=== PATIENT | female | born 1955 | race Caucasian/White ===

== ENCOUNTER 2017-06-16 08:19 | Emergency (ER) | payer MEDICAID ==
[~2017-06-16] VITALS: Ht 162.6 cm; Wt 63.5 kg
[2017-06-16] MEDS ORDERED: ASPIR 8181 MG ORAL (08:39)
[2017-06-16] MEDS ORDERED: LISINOPRIL2.5 MG ORAL (08:39)
[2017-06-16] MEDS ORDERED: OYSTER SHELL C500 MG PO (08:41)
[2017-06-16] MEDS ORDERED: LORAZEPAM0.5 MG ORAL (08:42)
[2017-06-16] MEDS ORDERED: IBUPROFEN600 MG ORAL ×2 (08:42→15:11)
[2017-06-16] MEDS ORDERED: QUETIAPINE FUMA25 MG ORAL (08:42)
[2017-06-16] MEDS ORDERED: ATORVASTATIN CA20 MG ORAL (08:43)
[2017-06-16] MEDS ORDERED: MELOXICAM15 MG PO (08:43)
[2017-06-16 08:45] VITALS: BP 131/82
[2017-06-16 09:28] LABS: BASOPHILS % (AUTO) 0.9 % (0.0-2.0); EOSINOPHILS % (AUTO) 2.2 % (0.0-3.0); HEMATOCRIT 46.2 % (37.0-47.0); HEMOGLOBIN 15.3 G/DL (12.0-16.0); LYMPHOCYTES % (AUTO) 29.9 % (20.0-45.0); MEAN CORPUSCULAR VOLUME 92 FL (80-99); MONOCYTES % (AUTO) 6.8 % (1.0-10.0); NEUTROPHILS % (AUTO) 60.2 % (45.0-75.0); PLATELET COUNT 297 K/UL (150-450); RED BLOOD COUNT 5.01 M/UL (4.20-5.40); RED CELL DISTRIBUTION WIDTH 11.3 % (11.6-14.8); WHITE BLOOD COUNT 5.2 K/UL (4.8-10.8)
[2017-06-16 09:37] LABS: ANION GAP 8 mmol/L (5-15); BLOOD UREA NITROGEN 18 mg/dL (7-18); CALCIUM 9.8 MG/DL (8.5-10.1); CARBON DIOXIDE 29 MMOL/L (21-32); CHLORIDE 105 MMOL/L (98-107); CREATININE 0.6 MG/DL (0.55-1.30); SODIUM 142 MMOL/L (136-145)
[2017-06-16 09:57] LABS: ALANINE AMINOTRANSFERASE 54 U/L (12-78); ALBUMIN 4.3 G/DL (3.4-5.0); ALBUMIN/GLOBULIN RATIO 1.3 (1.0-2.7); ALKALINE PHOSPHATASE 100 U/L (46-116); ASPARTATE AMINO TRANSFERASE 35 U/L (15-37); BILIRUBIN,TOTAL 0.7 MG/DL (0.2-1.0); CKMB 0.7 NG/ML (0.0-3.6); CREATINE KINASE 53 U/L (26-308)
--- NOTE | 2017-06-16 10:28 | Diagnostic Imaging Report ---
Indication: Dyspnea Comparison: None A single view chest radiograph was obtained. Findings: Cardiomediastinal appearance is within normal limits for age. Pulmonary vascularity is appropriate. The diaphragmatic contour is smooth and costophrenic angles are sharp. No pleural effusions are identified. The bones are osteopenic. Impression: No acute findings
[2017-06-16 11:00] VITALS: BP 126/80
[2017-06-16] MEDS ORDERED: Ketorolac 30mg Inj IV ONE (11:45)
--- NOTE | 2017-06-16 12:34 | Diagnostic Imaging Report ---
Indication: Abdominal pain Technique: Continuous helical transaxial imaging of the abdomen and pelvis was obtained from the lung bases to the pubic symphysis during intravenous contrast administration. Coronal 2-D reformats were also obtained. Study obtained in a Siemens sensation [address] Automatic Exposure Control was utilized. Total Dose length Product (DLP): 744.[address] Dose Index Volume (CTDIvol): 14.36 mGy Comparison: None Findings: There is mild dependent atelectasis posterior lung bases. The liver and spleen are unremarkable. No abnormalities of the gallbladder or pancreas identified. No renal stones are seen. No hydronephrosis demonstrated. Mild arterial calcifications are noted. Normal appendix demonstrated. Fairly extensive diverticula noted throughout the colon. There is no definite diverticulitis identified. No areas of inflammation are definitely seen. The bladder is mostly nondistended. Atrophic uterus noted. IMPRESSION: No acute findings appreciated. Normal appendix Diverticulosis of the colon. No definite diverticulitis. Atherosclerotic disease. The CT scanner at [facility] is accredited by the [employer] and the scans are performed using dose optimization techniques as appropriate to a performed exam including Automatic Exposure control.
[2017-06-16 13:00] VITALS: BP 130/82
--- NOTE | 2017-06-16 14:15 | Emergency Room Report ---
History of Present Illness General Chief Complaint: Pain Source: Patient Present Illness HPI Patient states that she has right sided lower rib pain. She states that the pain is primarily with laying flat. She is comfortable she is sitting upright. She denies recent illness. She denies fever or chills. She denies nausea or vomiting. She did hit this location on a crib 3 days ago but states that she did not develop pain until yesterday evening around 8 PM. She states the pain is severe with any movement. She denies dysuria or hematuria. She has no other symptoms. Allergies: Coded Allergies: No Known Allergies (Unverified , 06/16/17) Patient History Past Medical History: see triage record, HTN Social History: Denies: smoking, alcohol use, drug use Reviewed Nursing Documentation: PMH: Agreed, PSxH: Agreed Nursing Documentation-PMH Past Medical History: No History, Except For Hx Hypertension: Yes History Of Psychiatric Problem: Yes - Depression Review of Systems All Other Systems: negative except mentioned in HPI Physical Exam Vital Signs Date Time Temp Pulse Resp B/P (MAP) Pulse Ox O2 Delivery O2 Flow Rate FiO2 06/16/17 08:32 97.3 73 14 129/78 96 Room Air Sp02 EP Interpretation: reviewed, normal General Appearance: no apparent distress, alert, GCS 15, non-toxic Head: normocephalic, atraumatic Eyes: bilateral eye normal inspection, bilateral eye PERRL ENT: hearing grossly normal, normal pharynx, no angioedema, normal voice Neck: full range of motion, supple/symm/no masses Respiratory: chest non-tender, lungs clear, normal breath sounds, speaking full sentences Cardiovascular #1: regular rate, rhythm, no edema Gastrointestinal: normal bowel sounds, non tender, soft, non-distended, no guarding, no rebound Rectal: deferred Musculoskeletal: back normal, gait/station normal, normal range of motion, other - Tenderness to palpation R. lower ribs anteriorly. Neurologic: alert, oriented x3, responsive, motor strength/tone normal, sensory intact, speech normal Psychiatric: judgement/insight normal, memory normal, mood/affect normal, no suicidal/homicidal ideation Skin: normal color, no rash, warm/dry, well hydrated Medical Decision Making Diagnostic Impression: Primary Impression: Rib pain on right side Additional Impression: Costochondritis ER Course This patient has a clinical presentation consistent with muscle strain/pain/ contusion/costochondritis. Given the severity of the symptoms, I did obtain a CT of the abdomen and pelvis to include the lower ribs there was no acute pathology. The patient has pain with range of motion and has tenderness to palpation along the intercostal muscles/ribs. There is no evidence of compartment syndrome. There is no neurologic deficit. The patient was instructed on supportive home measures. No emergency medical condition was identified. The patient was given return precautions and followup instructions. Laboratory Tests Test 06/16/17 09:05 White Blood Count 5.2 K/UL (4.8-10.8) Red Blood Count 5.01 M/UL (4.20-5.40) Hemoglobin 15.3 G/DL (12.0-16.0) Hematocrit 46.2 % (37.0-47.0) Mean Corpuscular Volume 92 FL (80-99) Mean Corpuscular Hemoglobin 30.5 PG (27.0-31.0) Mean Corpuscular Hemoglobin Concent 33.1 G/DL (32.0-36.0) Red Cell Distribution Width 11.3 % (11.6-14.8) L Platelet Count 297 K/UL (150-450) Mean Platelet Volume 6.2 FL (6.5-10.1) L Neutrophils (%) (Auto) 60.2 % (45.0-75.0) Lymphocytes (%) (Auto) 29.9 % (20.0-45.0) Monocytes (%) (Auto) 6.8 % (1.0-10.0) Eosinophils (%) (Auto) 2.2 % (0.0-3.0) Basophils (%) (Auto) 0.9 % (0.0-2.0) Sodium Level 142 MMOL/L (136-145) Potassium Level 5.0 MMOL/L (3.5-5.1) Chloride Level 105 MMOL/L (98-107) Carbon Dioxide Level 29 MMOL/L (21-32) Anion Gap 8 mmol/L (5-15) Blood Urea Nitrogen 18 mg/dL (7-18) Creatinine 0.6 MG/DL (0.55-1.30) Estimate Glomerular Filtration Rate > 60 mL/min (>60) Glucose Level 107 MG/DL (74-106) H Calcium Level 9.8 MG/DL (8.5-10.1) Total Bilirubin 0.7 MG/DL (0.2-1.0) Aspartate Amino Transferase (AST) 35 U/L (15-37) Alanine Aminotransferase (ALT) 54 U/L (12-78) Alkaline Phosphatase 100 U/L (46-116) Total Creatine Kinase 53 U/L (26-308) Creatine Kinase MB 0.7 NG/ML (0.0-3.6) Creatine Kinase MB Relative Index 1.3 Troponin I 0.000 ng/mL (0.000-0.056) Total Protein 7.7 G/DL (6.4-8.2) Albumin 4.3 G/DL (3.4-5.0) Globulin 3.4 g/dL Albumin/Globulin Ratio 1.3 (1.0-2.7) EKG Diagnostic Results Rate: normal Rhythm: NSR ST Segments: no acute changes Rhythm Strip Diag. Results EP Interpretation: yes Rate: 60's Rhythm: NSR, no PVC's, no ectopy Chest X-Ray Diagnostic Results Chest X-Ray Diagnostic Results : Chest X-Ray Ordered: Yes # of Views/Limited/Complete: 1 View Indication: Chest Pain EP Interpretation: Yes Interpretation: no consolidation, no effusion, no pneumothorax, no acute cardiopulmonary disease Impression: No acute disease Electronically Signed by: Tameka CT/MRI/US Diagnostic Results CT/MRI/US Diagnostic Results : Imaging Test Ordered: CT ABD/Pelvis: Impression IMPRESSION: No acute findings appreciated. Normal appendix Diverticulosis of the colon. No definite diverticulitis. Atherosclerotic disease. Last Vital Signs Date Time Temp Pulse Resp B/P (MAP) Pulse Ox O2 Delivery O2 Flow Rate FiO2 06/16/17 08:45 97.3 66 15 131/82 98 Room Air Status: improved Disposition: HOME, SELF-CARE Condition: Improved Referrals: [facility],REFERRING (PCP) NANCY MEJIA D.O. Jun 16, 2017 14:15
[2017-06-16] MEDS ORDERED: CYCLOBENZAPRINE10 MG ORAL (15:11)
[2017-06-16] MEDS ORDERED: ACETAMINOPHEN-1 EAC1 ORAL (15:11)
[2017-06-16 15:45] VITALS: BP 123/59
--- NOTE | 2017-06-17 13:27 | Cardiology Report ---
APPROVED REPORT EKG Measurement Heart [id number] Normal sinus rhythm Possible Left atrial enlargement Septal infarct, age undetermined Abnormal ECG
== END 2017-06-16 15:35 | disposition home or self-care (01) ==
LOC: EMR 09:25
DX: R07.81 Pleurodynia (principal); M94.0 Chondrocostal junction syndrome [Tietze]; I10 Essential (primary) hypertension; F32.9 Major depressive disorder, single episode, unspecified; K57.30 Diverticulosis of large intestine without perforation or abscess without bleeding
CPT/HCPCS: 36415; 71045; 74177; 80053; 82550; 82553; 84484; 85025; 93005; 96361; 96374; 99284; J1885; Q9967